=== PATIENT | male | born 1975 | race Caucasian/White ===

== ENCOUNTER 2019-04-05 18:22 | Emergency (ER) | payer OTHER ==
[~2019-04-05] VITALS: Ht 177.8 cm; Wt 81.2 kg
[~2019-04-05 18:22] MED LIST: ACETAMINOPHEN-1 EAC1 PO; BACTRIM DS TAB1 EACH; BACTROBAN CREAM30 G1 TOP; CIPROFLOXACIN500 M1 PO; IBUPROFEN 800800 M1 PO; KEFLEX500 MG PO; LORTAB 5 MG/5001 TA1; MEDROLDOSEPACK PO; NOHOMEMEDICATIONS; NORCO 7.5-3251 EACH; PERCOCET 5-3251 EACH PO; PERCOCET 7.5-31 EACH PO; PROMETHEGAN25 MG RC; SULFACETAMIDE 115 M1 OP; TAMSULOSIN HCL0.4 MG PO; ZOFRAN4 MG PO
[2019-04-05] MEDS ORDERED: MELOXICAM15 MG PO (21:05)
[2019-04-05 21:12] VITALS: BP 123/89
== END 2019-04-05 21:12 | disposition home or self-care (01) ==
LOC: M.ERS 18:22
DX: S93.491A Sprain of other ligament of right ankle, initial encounter (principal); S93.691A Other sprain of right foot, initial encounter; Z87.442 Personal history of urinary calculi; Z90.49 Acquired absence of other specified parts of digestive tract; X58.XXXA Exposure to other specified factors, initial encounter; Y93.89 Activity, other specified; Y92.89 Other specified places as the place of occurrence of the external cause; Y99.8 Other external cause status